=== PATIENT | female | born 1965 | race Caucasian/White ===

== ENCOUNTER → 2019-04-20 | Outpatient (CLI) | payer BC ==
--- NOTE | 2019-04-22 10:27 | MM ---
Reason for exam: screening (asymptomatic). Last mammogram was performed 7 years and 1 month ago. History: Patient has history of other cancer at age 38. Family history of breast cancer in paternal grandmother and breast cancer in maternal grandmother. Took hormonal contraceptives for 5 years beginning at age 16. Physical Findings: A clinical breast exam by your physician is recommended on an annual basis and results should be correlated with mammographic findings. MG Screening Mammo w CAD Bilateral CC and MLO view(s) were taken. Prior study comparison: March 24, 2012, bilateral digital screening mammo w/CAD. December 11, 2009, left breast digital mammogram. The breast tissue is extremely dense which could obscure a lesion on mammography. No significant changes when compared with prior studies. ASSESSMENT: Benign, BI-RAD 2 RECOMMENDATION: Routine screening mammogram of both breasts in 1 year.
== END ==
LOC: RADMAMWWP 16:56
PROVIDERS: ATTEND Family Medicine
DX: Z12.31 Encounter for screening mammogram for malignant neoplasm of breast (principal)
CPT/HCPCS: 77067

== ENCOUNTER → 2022-06-14 | Outpatient (CLI) | payer BC ==
--- NOTE | 2022-06-14 09:28 | CT ---
EXAMINATION TYPE: CT soft tissue neck w con CT DLP: 278.2 mGycm, Automated exposure control for dose reduction was used. DATE OF EXAM: 06/14/2022 9:14 AM COMPARISON: None. CLINICAL INDICATION:Female, 56 years old with history of D10.1 BENIGN NEOPLASM OF TONGUE, Benign neop lasm of tongue TECHNIQUE: Standard enhanced CT of the neck. Axial sections with coronal and sagittal reformats were obtained. Contrast used:70 mL of Isovue 300 with IV Contrast, Oral contrast used: none. FINDINGS: Brain: Visualized portions are grossly unremarkable. Orbits: Unremarkable Sinuses: Grossly unremarkable. Spaces of the neck: Clear and symmetric. The tongue and oral pharynx appear symmetrical on CT imaging . Mild palatine tonsil enlargement, left greater than right. Musculoskeletal: No acute osseous pathology. Lymph nodes: Multiple nonenlarged lymph nodes are seen along both anterior chains of the neck. Vascular structures: Visualized major arteries are patent without evidence of aneurysm. Thoracic Inlet/airway: Airway is patent. Mild centrilobular emphysema changes. Soft tissues/Thyroid: Thyroid and remainder of the soft tissues are unremarkable. Other: none. IMPRESSION 1. Oropharynx is grossly symmetrical without evidence of tongue abnormality apparent on CT imaging, with mild palatine tonsil enlargement left greater than right. No evidence of lymphadenopathy. No def inite evidence for abscess or significant abnormality. 2. Mild emphysema changes.
== END | disposition home or self-care (01) ==
LOC: RADCTMAIN 08:33
PROVIDERS: ATTEND Otolaryngology
DX: D10.1 Benign neoplasm of tongue (principal); J43.9 Emphysema, unspecified
CPT/HCPCS: 70491; Q9967

== ENCOUNTER → 2022-07-31 | Day surgery (SDC) | payer BC ==
[2022-07-26 11:19] VITALS: BMI 21.9
[~2022-07-31] MED LIST: DEXAMETHASONE SOD PHOSPHATE 10 MG/ML 1 ML VIAL ONE; DEXAMETHASONE SOD PHOSPHATE 4 MG/ML 1 ML VIAL IV ONE; DEXAMETHASONE SOD PHOSPHATE 4 MG/ML 1 ML VIAL IV PRN; FAMOTIDINE 20 MG/2 ML VIAL IV PRN; GLYCOPYRROLATE 0.2 MG/ML 2 ML VIAL ONE; HYDROmorphone 0.5 MG/0.5 ML SYRINGE IVP PRN; LACTATED RINGERS 1,000 ML IV SCH; LIDOCAINE 1% (10MG/ML) FOR IV START INTRADERMA PRN; LIDOCAINE 2% INJ 20 MG/ML (2 ML VIAL) ONE; LIDOCAINE 4% LTA KIT (4 ML) TOPICAL ONE; MIDAZOLAM 2 MG/2 ML VIAL IV PRN; MIDAZOLAM 2 MG/2 ML VIAL ONE; NEOSTIGMINE 1 MG/ML 10 ML VIAL ONE; ONDANSETRON 4 MG/2 ML VIAL IVP ONE; ONDANSETRON 4 MG/2 ML VIAL IVP PRN; PROPOFOL 10 MG/ML 20 ML VIAL IV ONE; ROCURONIUM 10 MG/ML (5 ML VIAL) IV ONE; SUCCINYLCHOLINE CHLORIDE 200 MG/10 ML VIAL IV ONE; fentaNYL (PF) 50 MCG/ML 2 ML AMP ONE
--- NOTE | 2022-07-31 10:32 | P.OP ---
Date of Procedure: 07/31/22 Preoperative Diagnosis: lingual tonsillar hypertrophy Postoperative Diagnosis: Same Procedure(s) Performed: Direct microlaryngoscopy with biopsy base of tongue Anesthesia: DIXIE Surgeon: Boy Acuña Estimated Blood Loss (ml): 3 Pathology: other (Base of tongue) Condition: stable Disposition: PACU Indications for Procedure: Is a 56-year-old white female who had globus sensation and notable mild lingual tonsillar hypertrophy left greater than right on CT-she has a remote history of lymphoma Operative Findings: Mild diffuse Gertrude tonsillar hypertrophy Description of Procedure: Patient was brought in the operative suite and placed in a supine position. The patient underwent induction of general anesthesia with oral endotracheal intubation without difficulty. The patient was prepped and draped in the usual aseptic fashion. Tooth guard was placed. The base of tongue was palpated with mild diffuse lingual tonsillar hypertrophy palpated but no focal lesions otherwise noted. Direct laryngoscopy was then performed with systematic evaluation of the base of tongue vallecula both piriform sinuses post cricoid area and endolarynx. No abnormalities noted other than lingual tonsillar hypertrophy which was diffuse but mildly asymmetric left greater than right. With the laryngoscope placed in suspension. Microscope was brought into position and multiple microcup forceps biopsies were taken of the left lingual tonsils. Hemostasis was gained with silver nitrate. The laryngoscope and tooth guard removed. The patient was allowed to emerge from general anesthesia having tolerated procedure well was extubated in the operating suite and transferred to postop recovery area in satisfactory condition.
[2022-07-31 10:47] VITALS: TEMP 97.3
[2022-07-31 10:50] VITALS: RESP 16
[2022-07-31 12:00] VITALS: BP 146/73
[2022-07-31 14:06] VITALS: PULSE 75
== END | disposition home or self-care (01) ==
LOC: OR 08:15
PROVIDERS: ATTEND Otolaryngology
DX: J35.1 Hypertrophy of tonsils (principal); F17.210 Nicotine dependence, cigarettes, uncomplicated; Z90.710 Acquired absence of both cervix and uterus
CPT/HCPCS: 88184; 88185; 31536; J1100; J0690; J2405; 88305

== ENCOUNTER → 2023-10-24 | Outpatient (CLI) | payer BC ==
--- NOTE | 2023-10-27 20:17 | MM ---
Reason for Exam: Screening (asymptomatic). Last mammogram was performed 4 year(s) and 6 month(s) ago. Patient History: Menarche at age 14. First Full-Term at age 19. Hysterectomy at age 34. Other cancer, age 38. Hormonal Contraceptives for 5 years from age 16 until age 21. Paternal grandmother had breast cancer. Maternal grandmother had breast cancer. Risk Values: Emperatriz 5 year model risk: 0.9%. NCI Lifetime model risk: 5.7%. Prior Study Comparison: 12/11/2009 Left Diagnostic Mammogram, [facility]. 03/24/2012 Bilateral Screening Mammogram, [facility]. 04/20/2019 Bilateral Screening Mammogram, [facility]. Tissue Density: The breasts are heterogeneously dense, which may obscure small masses. Findings: Analyzed By CAD. There is no suspicious group of microcalcifications or new suspicious mass in either breast. Overall Assessment: Negative, BI-RAD 1 Management: Screening Mammogram of both breasts in 1 year. . Patient should continue monthly self-breast exams. A clinical breast exam by your physician is recommended on an annual basis. This exam should not preclude additional follow-up of suspicious palpable abnormalities. Note on Emperatriz scores and lifetime risk: 1. A Emperatriz score greater than 3% is considered moderate risk. If this is the case, consider specialist referral to assess eligibility for a risk reducing agent. 2. If overall lifetime risk for the development of breast cancer is 20% or higher, the patient may qualify for future screening with alternating mammogram and breast MRI. Electronically signed and approved by: Sue Kahn M.D. Radiologist
== END | disposition home or self-care (01) ==
LOC: RADMAMWWP 09:21
PROVIDERS: ATTEND Family Medicine
DX: Z12.31 Encounter for screening mammogram for malignant neoplasm of breast (principal); Z80.3 Family history of malignant neoplasm of breast
CPT/HCPCS: 77063; 77067